=== PATIENT | female | born 1980 | race Caucasian/White ===

== ENCOUNTER → 2016-09-30 | Outpatient (CLI) | payer BC ==
[2016-09-30 19:17] LABS: Basophils % (A) 1 %; CH 29.4; CHCM 33.2; Eosinophils # (A) 0.1 k/uL (0-0.7); Eosinophils % (A) 2 %; HCT 40.6 % (34.0-46.0); HGB 13.2 gm/dL (11.4-16.0); Luc # (Auto) 0.05; Luc % (Auto) 2; Lymphocytes # (A) 1.1 k/uL (1.0-4.8); Lymphocytes % (A) 40 %; MCH 28.9 pg (25.0-35.0); MCHC 32.4 g/dL (31.0-37.0); Mean Platelet Volume 8.6; Monocytes # (A) 0.1 k/uL (0-1.0); Monocytes % (A) 4 %; Neutrophils # (A) 1.4 k/uL (1.3-7.7); Neutrophils % (A) 52 %; RBC 4.56 m/uL (3.80-5.40); RDW 13.7 % (11.5-15.5); WBC 2.8 k/uL (3.8-10.6); WBC (Perox) 2.91
[2016-09-30 19:23] LABS: ALT 24 U/L (9-52); AST 15 U/L (14-36); Alkaline Phosphatase 46 U/L (38-126); Anion Gap 12 mmol/L; Blood Urea Nitrogen 13 mg/dL (7-17); Calcium 9.8 mg/dL (8.4-10.2); Carbon Dioxide 25 mmol/L (22-30); Chloride 104 mmol/L (98-107); Glucose 87 mg/dL (74-99); Non-African American GFR(MDRD) >60 (>60 ml/min/1.73 sqM); Potassium 4.4 mmol/L (3.5-5.1); Sodium 141 mmol/L (137-145); Total Bilirubin 0.6 mg/dL (0.2-1.3); Total Protein 6.9 g/dL (6.3-8.2)
== END | disposition home or self-care (01) ==
LOC: MMGSC 10:59
PROVIDERS: ATTEND Family Medicine
DX: E03.9 Hypothyroidism, unspecified (principal); R03.1 Nonspecific low blood-pressure reading
CPT/HCPCS: 36415; 80053; 84439; 84443; 84480; 85025

== ENCOUNTER → 2016-10-29 | Outpatient (CLI) | payer BC ==
[2016-10-29 18:22] LABS: Basophils % (A) 0 %; CH 28.7; CHCM 32.8; Eosinophils # (A) 0.1 k/uL (0-0.7); Eosinophils % (A) 2 %; HCT 38.7 % (34.0-46.0); HDW 2.39; Luc # (Auto) 0.06; Luc % (Auto) 2; Lymphocytes % (A) 29 %; MCH 29.6 pg (25.0-35.0); MCHC 33.6 g/dL (31.0-37.0); MCV 88.2 fL (80.0-100.0); Mean Platelet Volume 8.6; Monocytes # (A) 0.2 k/uL (0-1.0); Monocytes % (A) 4 %; Neutrophils # (A) 2.3 k/uL (1.3-7.7); Neutrophils % (A) 63 %; RBC 4.39 m/uL (3.80-5.40); RDW 13.6 % (11.5-15.5); WBC 3.7 k/uL (3.8-10.6)
== END | disposition home or self-care (01) ==
LOC: MMGSC 15:04
PROVIDERS: ATTEND Family Medicine
DX: D72.819 Decreased white blood cell count, unspecified (principal)
CPT/HCPCS: 36415; 85025

== ENCOUNTER → 2019-09-13 | Outpatient (CLI) | payer BC ==
--- NOTE | 2019-09-13 12:14 | USB ---
Reason for exam: clinical finding. History: Family history of breast cancer in paternal aunt at age 55, breast cancer in paternal grandmother at age 55, and breast cancer in maternal aunt at age 55. Physical Findings: Nurse did not find any significant physical abnormalities on exam. US Breast BILAT Right complete breast ultrasound includes all four quadrants, the retroareolar region and axilla. Finding demonstrates no cystic or solid lesion seen. Left complete breast ultrasound includes all four quadrants, the retroareolar region and axilla. Finding demonstrates no cystic or solid lesion seen. Dense tissue throughout. These results were verbally communicated with the patient and result sheet given to the patient on 09/13/19. ASSESSMENT: Negative, BI-RAD 1 RECOMMENDATION: Routine screening mammogram of both breasts at age 42. (or sooner if clinically indicated)
== END | disposition home or self-care (01) ==
LOC: RADUSWWP 10:26
PROVIDERS: ATTEND Obstetrics & Gynecology
DX: Z12.39 Encounter for other screening for malignant neoplasm of breast (principal)

== ENCOUNTER → 2024-07-04 | Outpatient (CLI) | payer BC ==
--- NOTE | 2024-07-04 22:42 | MR ---
EXAMINATION TYPE: MR knee LT wo con DATE OF EXAM: 07/04/2024 COMPARISON: Outside left knee x-ray 1 week earlier. HISTORY: Left knee pain since 8-24 due to injury while playing pickleball. TECHNIQUE: Multiplanar, multisequence images of the knee is performed without IV contrast. FINDINGS: Suboptimal with some motion artifact degradation MEDIAL MENISCUS: Anterior and posterior horns are intact without tear. LATERAL MENISCUS: Anterior and posterior horns are intact without tear. CRUCIATE LIGAMENTS: The anterior and posterior cruciate ligaments are intact and unremarkable. COLLATERAL LIGAMENTS: The medial collateral ligament and lateral collateral ligament complex are inta ct. Mild fluid signal surrounds the medial collateral ligament. EXTENSOR MECHANISM: Visualized quadriceps and patellar tendons are intact. EFFUSION: Small size suprapatellar joint effusion. POPLITEAL CYST: Some ill-defined fluid in the popliteal region. There is increased signal at proximal tendon origin from the posterior aspect of the distal medial femoral metaphysis. TRICOMPARTMENT SPACES: Tricompartment joint spaces are preserved. No significant spurring is seen. CARTILAGE: Tricompartmental articular cartilage is maintained. BONE MARROW SIGNAL: No focal abnormal marrow signal is appreciated. OTHER: No additional significant abnormality is appreciated. IMPRESSION: 1. No meniscal or ligamentous tear is seen. There is mild MCL sprain injury. 2. There is tendinosis/partial tearing of the semimembranous tendon at its origin from the posterior aspect of the distal femur. There is associated small amount of free fluid in the popliteal space. 3. Small-size suprapatellar joint effusion. [facility], Workstation: [id number], 07/04/2024 10:40 PM
== END | disposition home or self-care (01) ==
LOC: RADMRIMAIN 20:15
PROVIDERS: ATTEND Orthopaedic Surgery
DX: S83.412A Sprain of medial collateral ligament of left knee, initial encounter (principal); M25.462 Effusion, left knee